=== PATIENT | female | born 1985 | race Caucasian/White ===

== ENCOUNTER 2024-02-29 20:25 | Emergency (ER) | payer OTHER ==
[~2024-02-29] VITALS: Ht 170.2 cm; Wt 130.2 kg
[~2024-02-29 20:25] MED LIST: AMOXICILLIN500 MG PO; CYCLOBENZAPRINE10 MG PO; HYDROCODON-ACE1 EA11 PO; HYDROCODON-ACE1 EAC8 PO; IBUPROFEN600 MG; IBUPROFEN800 MG PO; MELOXICAM15 MG; NORCO 10-325 T1 EACH; NORCO 10-325 T1 EACH PO; NORCO 5-325 TA1 EACH PO; NYSTATIN1 EAC1 PO; PERCOCET 10-321 EACH PO; PREDNISONE20 MG PO; PRENATAL TABLE1 EAC2 PO
[2024-02-29] MEDS ORDERED: CORTISONE28 G1 (20:41)
[2024-02-29] MEDS ORDERED: FAMOTIDINE 20 MG TAB PO ONE (20:45)
[2024-02-29] MEDS ORDERED: diphenhydrAMINE HCL 50 MG CAP PO ONE (20:45)
[2024-02-29] MEDS ORDERED: predniSONE 20 MG TAB PO ONE (20:45)
[2024-02-29] MEDS ORDERED: predniSONE 20 MG TAB ONE (20:47)
[2024-02-29] MEDS ORDERED: EPIPEN 2-P0.3 MG/0.3 IM (21:12)
[2024-02-29 21:19] VITALS: BP 140/78
--- OUTSIDE RECORDS SUMMARY | 2024-03-01 17:59 | XMS ---
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 [place] has no Care Guidelines for this patient. Misa VISIT COUNT (12 MO.) 2 ELIJAH Jain TOTAL 2 NOTE: Visits indicate total known visits. ED/C VISIT TRACKING (12 MO.) 02/29/2024 20:25 [facility] [place] TYPE: Emergency COMPLAINT: - BEE STING 10/04/2023 08:03 [facility] [place] TYPE: Emergency COMPLAINT: - L WRIST INJURY DIAGNOSES: - Activity, other specified - Allergy status to narcotic agent - Allergy status to other antibiotic agents - Bee allergy status - Civilian activity done for income or pay - Nicotine dependence, unspecified, uncomplicated - Other chronic pain - Other nonmedicinal substance allergy status - Pain in left wrist - Unspecified fall, initial encounter - Unspecified fracture of navicular [scaphoid] bone of left wrist, initial encounter for closed fracture INPATIENT VISIT TRACKING (12 MO.) No inpatient visits to display in this time frame [email or web address]
== END 2024-02-29 21:23 | disposition home or self-care (01) ==
LOC: ED 20:25
DX: T63.441A Toxic effect of venom of bees, accidental (unintentional), initial encounter (principal); F17.200 Nicotine dependence, unspecified, uncomplicated; Z91.09 Other allergy status, other than to drugs and biological substances; Z91.030 Bee allergy status; Z88.1 Allergy status to other antibiotic agents; Z88.5 Allergy status to narcotic agent
CPT/HCPCS: J7512; Q0163